=== PATIENT | female | born 1980 ===

== ENCOUNTER 2016-05-28 00:15 | Inpatient (IN) | payer MEDICAID ==
[2016-05-28] MEDS ORDERED: OXYTOCIN IN LR 500 ML IV PRN (01:00)
[2016-05-28] MEDS ORDERED: OXYTOCIN 10 UNITS/ML VIAL ONE (01:11)
[2016-05-28] MEDS ORDERED: SODIUM CHLORIDE 0.9% FLUSH 10 ML ONE (01:11)
[2016-05-28] MEDS ORDERED: LACTATED RINGERS 0 ML ONE (01:11)
[2016-05-28] MEDS ORDERED: MINERAL OIL 25 ML BOT ONE (01:11)
[2016-05-28] MEDS ORDERED: IV START KIT ONE (01:11)
[2016-05-28] MEDS ORDERED: OXYTOCIN IN LR 500 ML IV ONE (01:12)
[2016-05-28] MEDS ORDERED: LIDOCAINE Viscous 2% 15 ML UDCUP ONE (01:12)
[2016-05-28] MEDS ORDERED: PUMP TUBING ONE (01:12)
[2016-05-28] MEDS ORDERED: LIDOCAINE 1% (PRES FREE) 30 ML VIAL ONE (01:12)
[2016-05-28 01:59] LABS: HEMATOCRIT 36.5 % (37.0-47.0); HEMOGLOBIN 12.2 gm/l (12.0-16.0); MEAN CELL VOLUME 83.3 fl (81.0-99.0); MEAN CORPUSCULAR HEMOGLOBIN 27.9 pg (27.0-31.0); MEAN CORPUSCULAR HGB CONC 33.4 g/dl (33.0-37.0); RED CELL DISTRIBUTION WIDTH 13.2 % (11.5-14.5)
[2016-05-28] MEDS ORDERED: HYDROCODONE/ACETAMINOPHEN 5/325MG TABLET PO PRN (04:30)
[2016-05-28] MEDS ORDERED: LANOLIN 50 APPLIC/7G TUBE TP PRN (04:30)
[2016-05-28] MEDS ORDERED: BENZOCAINE/MENTHOL 60 APPLIC/BOT TP PRN (04:30)
[2016-05-28] MEDS: IBUPROFEN 800 MG TABLET PO SCH ×3 (04:49→17:48)
--- NOTE | 2016-05-28 05:27 | PCMDEL ---
Delivery Note - Labor 1st stage (hr/min):: 4 hours 2nd stage (hr/min):: 3 mins 3rd stage (hr/min):: 10 mins Total (hr/min):: 4 hours 13 mins Pushed (hr/min):: 3 mins - Delivery Delivery (Date): 05/28/16 Delivery (Time): 04:12 Gender: Male Weight: 3.487 kg Presentation: Cephalic Position: OA Umbilical Cord: 3 Vessel Delayed Cord Clamping:: > 3 min 1 Minute Total: 9 5 Minute Total: 9 Placenta:: Blum/Intact EBL:: 200 Perineum:: Intact Anesthesia/Meds:: None Length ROM:: 5 hours Comments:: Patient presented to [facility] after SROM of clear fluid at home. Spontaneous progression into active labor. Remained candidate for IA during first stage. Coped using various position changes and support from partner. Spontaneous urge to push. SVE 9.5/100/0. Small cervical rim reduced while patient pushed. Rapid and well controlled of viable male infant over intact perineum. Spontaneous cries and respirations. Placed immediately on maternal abdomen. DCC x 8 mins. Spontaneous separation and delivery of intact placenta with maternal pushing efforts. Blum presentation. AMTSL with IV pitocin. QBL 200 mL. Mother and stable in the immediate period.
--- NOTE | 2016-05-28 05:28 | PCMAN ---
OB Admission Note - History : 5 Term: 4 : 0 Abortions (S&E): 0 Livin EDC:: 06/12/16 Gestational Age (weeks): 37 Days (#/7): 6 Admit Cervical Dilation:: 4 Admit Cervical Effacement (%):: 90 Admit Station:: -2 Admit Presentaton:: vertex Membrane Status: Ruptured Rupture (Date): 05/27/16 Rupture (Time): 23:00 Membranes Comment:: SROM Labor Onset (Date): 05/27/16 Labor Onset (Time): 23:00 Contractions: Yes Contraction Frequency:: irregular Heart Rate:: 130 (moderate variability/accels present/decels absent) Status:: FHR Cat 1 EFW:: 8.5 # Summary of Course:: Onset of care at 16w5d x 9 visits. complicated by advanced maternal age and anxiety close to term. Presents to [facility] with SROM and spontaneous labor. - Labs Blood Type: O (+) positive Hct/Hgb:: 11.9 Rubella Status: Immune GBS Status: Negative - Review of Systems Neg ROS - Physical Exam General: Afebrile, No Acute Distress Psych/Mental Status: Mood/Affect Appropriate, Judgment/Insight Intact Neurological: Grossly Intact, Alert, Oriented x 4 Lungs: Clear to Auscultation Bilaterally Cardiovascular: Regular Rate and Rhythm Genitourinary: Normal Female Genitalia, No Edema Extremities: Full ROM, No Edema Skin: Normal Color, Warm - Problems (1) Active labor Status: Acute Code: [id number] Assessment/Plan: 36 year old at 37w6d Active labor post SROM of clear fluid VSS FHR Cat 1 Desires unmedicated delivery Plan: Admit to [facility] Expectant management of labor Intermittent auscultation for monitoring Reassess labor in 2 hours or PRN Anticipate
[2016-05-28] MEDS: DOCUSATE SODIUM 100 MG CAPSULE PO PRN (11:13)
[2016-05-29] MEDS: IBUPROFEN 800 MG TABLET PO SCH ×2 (07:11→07:53)
[2016-05-29] MEDS: DOCUSATE SODIUM 100 MG CAPSULE PO PRN (07:53)
[2016-05-29 09:03] VITALS: BP 110/61
--- NOTE | 2016-06-03 10:10 | PDOC39B ---
Hospital Course: ADMIT DATE: 05/28/16 DISCHARGE DATE: 05/29/16 ADMISSION DIAGNOSES: active labor at term PROCEDURES: HISTORY OF PRESENT ILLNESS: 36 year old G5 T4 L4 at 37 weeks 6 days presenting with active labor at term. Achieved . Uneventful, stable course. HOSPITAL COURSE: By day of discharge the patient is ambulating, eating, voiding , and passing flatus without difficulty. Pain is controlled and lochia is appropriate. She is exclusively. She requests an Rx for colace and ibuprofen for home. She plans to use the Mirena IUD for contraception. Will need to sign [facility] application at 2-week visit. Has good family and friend support. - Physical Exam Vital Signs: Temp Pulse Resp BP Pulse Ox 98.1 F 76 14 110/61 05/29/16 07:40 05/29/16 07:40 05/29/16 07:40 05/29/16 07:40 General: Afebrile Psych/Mental Status: Mood/Affect Appropriate, Judgment/Insight Intact, Bonding Well Lungs: Clear to Auscultation Bilaterally Cardiovascular: Regular Rate and Rhythm Breast: Soft, Skin intact, Nipples Intact Fundus: Firm, Midline, Below Umbilicus Genitourinary: Normal Female Genitalia Lochia: Light Extremities: Full ROM Skin: Normal Color - Discharge Diagnosis (1) care and examination Status: Acute Assessment/Plan: A: 36yo Day 1 Lochia stable -no concerns P: : encouraged on-demand feeds and [id number], [facility] and lanolin PRN Education: handout given and reviewed in Frisian. Warning signs discussed (baby blues vs PP mood disorder, bleeding, infection, DVT/PE) Contraception: Mirena IUD to be inserted at 6-week visit. Will need to complete [facility] application at 2-week visit. Reviewed no unprotected intercourse until after IUD insertion Rx: ibuprofen and colce given Follow-up: 06/13/16 at 3:20pm in [place], or PRN - Discharge Plan Condition: Stable Disposition: Home Instruction Forms: Vaginal Discharge Instructions Additional Instructions: Felicidadades! Tienes francis nathan de siguimiento con las parteras el 06/13/16 a las 3:20pm en [place]. Si tienes cualquier preguna o preocupacion, o si necesitas cambiar tu nathan en la clinica, favor de llamar a la clinica a las [phone]. Prescriptions: Docusate Sodium [COLACE 100 MG CAPSULE (SHF)] 100 mg PO DAILY PRN #10 cap PRN Reason: Constipation Ibuprofen [Motrin] 1 tab PO Q6H PRN #30 tablet PRN Reason: Pain
== END 2016-05-29 12:59 | disposition home or self-care (01) | DRG 775 ==
LOC: FBC 00:15 → FBCOUT 00:15 → FBC 00:55
PROVIDERS: ADMIT Licensed Practical Nurse; ATTEND Licensed Practical Nurse
PROC: 10E0XZZ Delivery of Products of Conception, External Approach (ICD-10-PCS; principal; 2016-05-28)
DX: O99.344 Other mental disorders complicating childbirth (principal); F41.8 Other specified anxiety disorders; O09.523 Supervision of elderly multigravida, third trimester; Z3A.37 37 weeks gestation of pregnancy; Z37.0 Single live birth